=== PATIENT | female | born 1940 | race Caucasian/White ===

== ENCOUNTER 2019-04-30 15:33 | Outpatient (REF) | payer OTHER, SELFPAY | END 2019-04-30 15:53 | LOC: NCHCN 15:33 | PROVIDERS: PCP Family Medicine; Visit Provider Nurse Practitioner Family | DX: R35.0 Frequency of micturition (principal) | CPT/HCPCS: 87077; 87086; 87186 ==

== ENCOUNTER 2019-06-22 14:17 | Outpatient (REF) | payer OTHER, SELFPAY ==
[2019-06-22 20:43] LABS: Anion Gap 11.4 mmol/L (3-11); BUN 15 mg/dL (7-18); CO2 26.6 mmol/L (21.0-32.0); CREATININE 0.92 mg/dL (0.55-1.02); Calcium 8.9 mg/dL (8.5-10.1); Chloride 106 mmol/L (98-107); Estimated GFR 59.04 (mL/min/1.73m2); Glucose 143 mg/dL (74-106); Potassium 3.6 mmol/L (3.5-5.1); Sodium 144 mmol/L (136-145)
== END 2019-06-22 14:37 ==
LOC: NCHCN 14:17
PROVIDERS: PCP Family Medicine; Visit Provider Family Medicine
DX: R73.02 Impaired glucose tolerance (oral) (principal); R03.0 Elevated blood-pressure reading, without diagnosis of hypertension
CPT/HCPCS: 80048

== ENCOUNTER 2020-11-01 10:18 | Outpatient (REF) | payer MEDICARE, SELFPAY ==
[2020-11-01 14:21] LABS: ALT 23 U/L (14-59); Calculated LDL 115 mg/dL (<100); Cholesterol 196 mg/dL (<200); HDL Cholesterol 53 mg/dL (40-60); Triglyceride 140 mg/dL (<150)
== END 2020-11-01 10:19 | disposition home or self-care (01) ==
LOC: NCHCN 10:18
PROVIDERS: PCP Family Medicine; Visit Provider Family Medicine
DX: E78.5 Hyperlipidemia, unspecified (principal); R73.03 Prediabetes; F51.04 Psychophysiologic insomnia
CPT/HCPCS: 80061; 84460

== ENCOUNTER 2021-06-04 19:10 | Outpatient (REF) | payer MEDICARE, SELFPAY ==
[2021-06-06 12:28] LABS: COVID-19 RT-PCR UVMMC Result Negative (Negative)
== END 2021-06-04 19:11 | disposition home or self-care (01) ==
LOC: NCHCN 19:10
PROVIDERS: PCP Family Medicine; Visit Provider Nurse Practitioner Community Health
DX: Z20.822 Contact with and (suspected) exposure to COVID-19 (principal); J06.9 Acute upper respiratory infection, unspecified
CPT/HCPCS: U0003; U0005

== ENCOUNTER 2021-07-11 15:57 | Outpatient (REF) | payer MEDICARE, SELFPAY ==
[2021-07-11 22:19] LABS: BUN 15 mg/dL (7-18); CREATININE 0.8 mg/dL (0.55-1.02); Calcium 9.3 mg/dL (8.5-10.1); Chloride 105 mmol/L (98-107); Glucose 89 mg/dL (74-106); Potassium 4.2 mmol/L (3.5-5.1); Sodium 142 mmol/L (136-145)
[2021-07-11 22:24] LABS: COMMENT (LAB VIEW ONLY) 19.23 mg/dL; Microalb ug/mg Crea 18.7 ug/mg Cr
== END 2021-07-11 15:58 | disposition home or self-care (01) ==
LOC: NCHCN 15:57
PROVIDERS: PCP Family Medicine; Visit Provider Family Medicine
DX: I10 Essential (primary) hypertension (principal); R73.03 Prediabetes
CPT/HCPCS: 80048; 82043; 82570

== ENCOUNTER 2022-04-23 20:00 | Outpatient (REF) | payer MEDICARE, SELFPAY ==
[2022-04-23 20:56] LABS: HCT 38.4 % (36.0-46.0); HGB 12.6 g/dL (11.2-15.7); MCH 29.5 pg (27.0-33.0); MCHC 32.8 % (32.0-36.0); MCV 90 fL (80-95); MPV 12.1 fL (8.0-11.0); Platelet Count 199 10^3/uL (130-400); RBC 4.27 10^6/uL (3.93-5.22); RDW 12.9 % (11.7-14.6); RDW-SD 42.4 fL; WBC 6.74 10^3/uL (4.4-10.8)
[2022-04-23 21:09] LABS: ALT 16 U/L (14-59); AST 23 U/L (15-37); Alkaline Phosphatase 91 U/L (46-116); Anion Gap 9.6 mmol/L (3-11); BUN 20 mg/dL (7-18); Bilirubin, Total 0.2 mg/dL (0.2-1.0); CO2 26.4 mmol/L (21.0-32.0); CREATININE 0.9 mg/dL (0.55-1.02); Calcium 9.3 mg/dL (8.5-10.1); Chloride 104 mmol/L (98-107); Estimated GFR 64.23 (mL/min/1.73m2); Glucose 127 mg/dL (74-106); Potassium 3.7 mmol/L (3.5-5.1); Sodium 140 mmol/L (136-145); Total Protein 7.6 g/dL (6.4-8.2)
== END 2022-04-23 20:01 | disposition home or self-care (01) ==
LOC: NCHCN ADD 20:00
PROVIDERS: PCP Family Medicine; Visit Provider Family Medicine
DX: R10.9 Unspecified abdominal pain (principal); G89.29 Other chronic pain
CPT/HCPCS: 80053; 85027

== ENCOUNTER 2023-03-21 12:50 | Outpatient (REF) | payer MEDICARE, SELFPAY ==
[2023-03-21 21:07] LABS: HCT 41.1 % (36.0-46.0); HGB 13.5 g/dL (11.2-15.7); MCH 29.6 pg (27.0-33.0); MCHC 32.8 % (32.0-36.0); MCV 90 fL (80-95); MPV 12.2 fL (8.0-11.0); Platelet Count 199 10^3/uL (130-400); RBC 4.56 10^6/uL (3.93-5.22); RDW 12.4 % (11.7-14.6); RDW-SD 40.6 fL; WBC 6.17 10^3/uL (4.4-10.8)
[2023-03-21 21:31] LABS: Anion Gap 8.3 mmol/L (3-11); BUN 13 mg/dL (7-18); CO2 27.7 mmol/L (21.0-32.0); Calcium 9.1 mg/dL (8.5-10.1); Calculated LDL 87 mg/dL (<100); Chloride 106 mmol/L (98-107); Cholesterol 176 mg/dL (<200); Estimated GFR 56.25 (mL/min/1.73m2); Glucose 105 mg/dL (74-106); HDL Cholesterol 56 mg/dL (40-60); Potassium 3.9 mmol/L (3.5-5.1); Sodium 142 mmol/L (136-145); TSH 0.81 uIU/mL (0.36-3.74); Triglyceride 166 mg/dL (<150)
== END 2023-03-21 12:51 | disposition home or self-care (01) ==
LOC: NCHCN 12:50
PROVIDERS: PCP Family Medicine; Visit Provider Family Medicine
DX: R63.4 Abnormal weight loss (principal); E78.5 Hyperlipidemia, unspecified; F41.8 Other specified anxiety disorders; R42 Dizziness and giddiness; R19.4 Change in bowel habit; L65.9 Nonscarring hair loss, unspecified
CPT/HCPCS: 80048; 80061; 85027; 84443

== ENCOUNTER 2023-07-08 10:54 | Outpatient (REF) | payer MEDICARE, SELFPAY | END 2023-07-08 10:55 | disposition home or self-care (01) | LOC: NCHCN 10:54 | PROVIDERS: PCP Family Medicine; Visit Provider Physician Assistant | DX: R82.998 Other abnormal findings in urine (principal) | CPT/HCPCS: 87086 ==

== ENCOUNTER 2024-03-19 10:27 | Outpatient (REF) | payer MEDICARE, SELFPAY | END 2024-03-19 10:28 | disposition home or self-care (01) | LOC: NCHCN 10:27 | PROVIDERS: PCP Family Medicine; Visit Provider Family Medicine | DX: R39.9 Unspecified symptoms and signs involving the genitourinary system (principal) | CPT/HCPCS: 87077; 87086; 87186 ==

== ENCOUNTER 2025-05-05 14:42 | Outpatient (REF) | payer MEDICARE, SELFPAY ==
[2025-05-05 20:58] LABS: HCT 39.3 % (36.0-46.0); HGB 12.6 g/dL (11.2-15.7); MCH 29.0 pg (27.0-33.0); MCHC 32.1 % (32.0-36.0); MCV 91 fL (80-95); MPV 12.0 fL (8.0-11.0); Platelet Count 168 10^3/uL (130-400); RBC 4.34 10^6/uL (3.93-5.22); RDW 12.3 % (11.7-14.6); RDW-SD 41.0 fL; WBC 5.78 10^3/uL (4.4-10.8)
[2025-05-05 21:16] LABS: ALT 18 U/L (14-59); AST 18 U/L (15-37); Albumin 3.9 g/dL (3.4-5.0); Alkaline Phosphatase 95 U/L (46-116); Anion Gap 9.9 mmol/L (3-11); BUN 16 mg/dL (7-18); Bilirubin, Total 0.3 mg/dL (0.2-1.0); CO2 28.1 mmol/L (21.0-32.0); Calcium 9.1 mg/dL (8.5-10.1); Calculated LDL 71 mg/dL (<100); Chloride 106 mmol/L (98-107); Cholesterol 159 mg/dL (<200); Estimated GFR 55.55 (mL/min/1.73m2); Glucose 126 mg/dL (74-106); HDL Cholesterol 59 mg/dL (>or=50); Potassium 4.0 mmol/L (3.5-5.1); Sodium 144 mmol/L (136-145); TSH 1.08 uIU/mL (0.36-3.74); Total Protein 7.2 g/dL (6.4-8.2); Triglyceride 145 mg/dL (<150)
[2025-05-05 21:21] LABS: Hemoglobin A1C 5.9 % (<5.7)
== END 2025-05-05 14:43 | disposition home or self-care (01) ==
LOC: NCHCN 14:42
PROVIDERS: PCP Family Medicine; Visit Provider Family Medicine
DX: R73.03 Prediabetes (principal); Z13.0 Encounter for screening for diseases of the blood and blood-forming organs and certain disorders involving the immune mechanism; Z13.29 Encounter for screening for other suspected endocrine disorder; I10 Essential (primary) hypertension; E78.5 Hyperlipidemia, unspecified
CPT/HCPCS: 80053; 80061; 85027; 83036; 84443